=== PATIENT | male | born 1960 | race Caucasian/White ===

== ENCOUNTER 2016-06-15 16:39 | Emergency (ER) | payer OTHER, BC ==
[2016-06-15] MEDS ORDERED: IBUPROFEN 400 MG TABLET PO STA (17:23)
[2016-06-15] MEDS ORDERED: LIDOCAINE PATCH 5% TOP STA (17:23)
[2016-06-15] MEDS ORDERED: LIDOCAINE PATCH 5% TOP ONE (17:25)
[2016-06-15] MEDS ORDERED: IBUPROFEN 400 MG TABLET PO ONE (17:25)
== END 2016-06-15 18:36 | disposition home or self-care (01) ==
DX: M54.5 Low back pain (principal); M25.552 Pain in left hip; R03.0 Elevated blood-pressure reading, without diagnosis of hypertension
CPT/HCPCS: 73502; 99283; A9270

== ENCOUNTER 2017-01-07 07:19 | Outpatient (CLI) | payer OTHER ==
[2017-01-07 13:49] LABS: BASOPHILS % (AUTO) 0.5 %; EOSINOPHILS # (AUTO) 0.1 10^3/uL (0.0-0.7); EOSINOPHILS % (AUTO) 1.8 %; HCT - HEMATOCRIT 38.9 % (42.0-52.0); HGB - HEMOGLOBIN 13.2 g/dL (14.0-18.0); LYMPHOCYTES # (AUTO) 2.5 10^3/uL (1.5-3.5); LYMPHOCYTES % (AUTO) 36.5 %; MEAN CORPUSCULAR HEMOGLOBIN 29.9 pg (27.0-31.0); MEAN CORPUSCULAR HGB CONC 33.9 g/dL (32.0-36.0); MEAN CORPUSCULAR VOLUME 88.4 fL (80.0-94.0); MONOCYTES # (AUTO) 0.5 10^3/uL (0.0-1.0); MONOCYTES % (AUTO) 6.9 %; NEUTROPHILS # (AUTO) 3.7 10^3/uL (1.5-6.6); NEUTROPHILS % (AUTO) 54.3 %; RED CELL DISTRIBUTION WIDTH 13.3 % (12.0-15.0); UNCORRECTED WHITE BLOOD COUNT 6.8 x10^3/uL; WHITE BLOOD COUNT 6.8 x10^3/uL (4.8-10.8)
[2017-01-07 14:09] LABS: ALBUMIN/GLOBULIN RATIO 1.4 (1.0-2.2); BILIRUBIN,TOTAL 0.8 mg/dL (0.2-1.0); BUN - BLOOD UREA NITROGEN 17 mg/dL (6-20); CALCIUM 8.9 mg/dL (8.5-10.3); CARBON DIOXIDE - CO2 25 mmol/L (21-32); CHLORIDE 109 mmol/L (101-111); CHOL/HDL RATIO 3.9 (<5.0); CHOLESTEROL 181 mg/dL; CREATININE 0.8 mg/dL (0.6-1.2); GFR - MDRD 100 (>89); GLUCOSE 95 mg/dL (70-100); HDL CHOLESTEROL 47 mg/dL; LDL/HDL RATIO 2.6 (<3.6); POTASSIUM 3.9 mmol/L (3.5-5.0); SODIUM 140 mmol/L (135-145); TOTAL PROTEIN 6.6 g/dL (6.7-8.2); TRIGLYCERIDES 60 mg/dL; VLDL CHOLESTEROL 12 mg/dL
== END 2017-01-07 07:20 | disposition home or self-care (01) ==
LOC: LAB.WCP 07:19
PROVIDERS: ATTEND Family Medicine
DX: Z00.00 Encounter for general adult medical examination without abnormal findings (principal); Z12.5 Encounter for screening for malignant neoplasm of prostate
CPT/HCPCS: 36415; 80053; 80061; 84153; 85025

== ENCOUNTER 2017-01-07 08:34 | Outpatient (CLI) | payer OTHER ==
[2017-01-07] MEDS ORDERED: IOPAMIDOL-300 100 ML VIAL IVP ONE (08:58)
--- NOTE | 2017-01-07 10:57 | CT Report ---
CT ABDOMEN AND PELVIS WITH AND WITHOUT CONTRAST: 01/07/2017 CLINICAL INDICATION: Hematuria. TECHNIQUE: Axial CT images of the abdomen and pelvis were obtained prior to and following 100 mL Iso joe-300 intravenously, using split bolus technique. No previous CT is available for comparison. In accordance with CT protocol optimization, one or more of the following dose reduction techniques w ere utilized for this exam: automated exposure control, adjustment of mA and/or KV based on patient size, or use of iterative reconstructive technique. FINDINGS: Limited evaluation of the lung bases demonstrates atelectasis. Abdomen: On the unenhanced images, there is no evidence of nephrolithiasis or hydronephrosis. The k idneys demonstrate symmetric uptake and excretion of contrast. No renal parenchymal lesion or collec ting system lesion is seen. The ureters are normal in caliber. The liver, spleen, pancreas, and adr enal glands appear unremarkable, allowing for phase of contrast enhancement. The gallbladder is not dilated. No bowel dilatation, free gas, or free fluid is present. No abdominal adenopathy is seen. Pelvis: The urinary bladder is under-distended. No pelvic adenopathy or free fluid is present. Sig moid diverticulosis is noted, without CT evidence of diverticulitis. Osseous structures demonstrate degenerative changes. IMPRESSION: NO EVIDENT UPPER TRACT ETIOLOGY FOR PATIENT'S HEMATURIA. CONSIDER CYSTOSCOPY. JOB #: [id number] EXT JOB #:[id number]
== END 2017-01-07 08:35 | disposition home or self-care (01) ==
LOC: DI 08:34
PROVIDERS: ATTEND Family Medicine
DX: Z00.00 Encounter for general adult medical examination without abnormal findings (principal); R31.9 Hematuria, unspecified; Z12.5 Encounter for screening for malignant neoplasm of prostate
CPT/HCPCS: 36415; 74178; 80053; 80061; 84153; 85025; Q9967

== ENCOUNTER 2017-08-19 06:11 | Outpatient (CLI) | payer OTHER ==
[2017-08-19] MEDS ORDERED: IOPAMIDOL-300 100 ML VIAL ONE (06:33)
[2017-08-19] MEDS ORDERED: IOPAMIDOL-300 50 ML VIAL ONE (06:33)
[2017-08-19] MEDS ORDERED: IOPAMIDOL-300 100 ML VIAL IVP ONE (07:39)
[2017-08-19] MEDS ORDERED: IOPAMIDOL-300 50 ML VIAL PO ONE (07:39)
--- NOTE | 2017-08-19 15:03 | XRAY Report ---
TWO-VIEW CHEST: 08/19/2017 CLINICAL INDICATION: Cough. COMPARISON: 10/11/2014. FINDINGS: Frontal and lateral views of the chest demonstrate a normal cardiac silhouette. The lungs remain clear. No effusion or pneumothorax is present. IMPRESSION: NORMAL CHEST, UNCHANGED. TD: 08/19/2017 15:02
--- NOTE | 2017-08-19 19:24 | CT Report ---
CT ABDOMEN AND PELVIS WITH CONTRAST: 08/19/2017 INDICATION: Left lower quadrant pain. TECHNIQUE: Axial CT images of the abdomen and pelvis were obtained with 100 mL Isovue 300 well as oral contrast. COMPARISON: 01/07/2017. FINDINGS: Limited evaluation of the lung bases demonstrates minimal atelectasis. ABDOMEN: The liver, spleen, pancreas, kidneys and adrenal glands are unremarkable. The gallbladder is nondilated. No bowel dilatation, free gas, or free fluid is present. No abdominal adenopathy is seen. PELVIS: The pelvic organs appear unremarkable. No pelvic adenopathy or free fluid is present. Osseous structures demonstrate degenerative changes. IMPRESSION: NO EVIDENT ETIOLOGY FOR PATIENT'S LEFT LOWER QUADRANT PAIN. NO EVIDENCE OF DIVERTICULITIS. TD: 08/19/2017 19:23
== END 2017-08-19 06:12 | disposition home or self-care (01) ==
LOC: DI 06:11
PROVIDERS: ATTEND Internal Medicine Gastroenterology
DX: R10.32 Left lower quadrant pain (principal); R05 Cough
CPT/HCPCS: 71046; 74177; Q9967

== ENCOUNTER 2017-09-02 10:47 | Outpatient (CLI) | payer OTHER ==
[2017-09-02 11:04] LABS: BASOPHILS % (AUTO) 0.4 %; EOSINOPHILS # (AUTO) 0.1 10^3/uL (0.0-0.7); HGB - HEMOGLOBIN 14.4 g/dL (14.0-18.0); LYMPHOCYTES # (AUTO) 3.3 10^3/uL (1.5-3.5); LYMPHOCYTES % (AUTO) 49.5 %; MEAN CORPUSCULAR HEMOGLOBIN 30.1 pg (27.0-31.0); MEAN CORPUSCULAR HGB CONC 34.1 g/dL (32.0-36.0); MEAN PLATELET VOLUME 6.5 fL (7.4-11.4); MONOCYTES # (AUTO) 0.5 10^3/uL (0.0-1.0); MONOCYTES % (AUTO) 7.2 %; NEUTROPHILS # (AUTO) 2.7 10^3/uL (1.5-6.6); NEUTROPHILS % (AUTO) 40.9 %; PLT - PLATELET COUNT 240 10^3/uL (130-450); RED BLOOD COUNT 4.81 10^6/uL (4.70-6.10); RED CELL DISTRIBUTION WIDTH 13.4 % (12.0-15.0); WHITE BLOOD COUNT 6.7 x10^3/uL (4.8-10.8)
[2017-09-02 11:19] LABS: ALBUMIN 4.6 g/dL (3.2-5.5); ALBUMIN/GLOBULIN RATIO 1.5 (1.0-2.2); BILIRUBIN,TOTAL 1.1 mg/dL (0.2-1.0); CALCIUM 9.1 mg/dL (8.5-10.3); CREATININE 0.8 mg/dL (0.6-1.2); TOTAL PROTEIN 7.7 g/dL (6.7-8.2)
== END 2017-09-02 10:48 | disposition home or self-care (01) ==
LOC: LAB 10:47
PROVIDERS: ATTEND Internal Medicine Gastroenterology
DX: R10.32 Left lower quadrant pain (principal)
CPT/HCPCS: 36415; 80053; 85025

== ENCOUNTER 2018-10-12 00:45 | Emergency (ER) | payer OTHER, BC ==
[2018-10-12 00:56] VITALS: BP 128/81
--- NOTE | 2018-10-12 02:14 | ED Physician Documentation ---
PD HPI OPHTHO - Stated complaint Stated Complaint: F/O L EYE - Chief complaint Chief Complaint: Heent - History obtained from History obtained from: Patient - History of Present Illness Timing - onset: Yesterday Timing - duration: Hours Timing - details: Abrupt onset Location: Left Quality / character: Other (Irritated) Associated symptoms: FB sensation. No: Redness, Swelling, Tearing, Double vision, Decreased vision Contributing factors: Work related Recently seen: Not recently seen - Additional information Additional information: Patient was grinding metal at work today around 10 AM when he felt something go in his eye. He tried to flush it out and then tonight they tried to remove it although he said they could not actually see it. He has had this happen in the past. He is uncertain when his last tetanus vaccine was. PD PAST MEDICAL HISTORY - Past Medical History Past Medical History: Yes Cardiovascular: None Respiratory: None Neuro: None Endocrine/Autoimmune: None GI: Other : None HEENT: None Psych: Claustrophobia Musculoskeletal: None Derm: Eczema - Past Surgical History Past Surgical History: Yes General: Hiatal hernia repair Ortho: Other HEENT: Tonsil/Adenoidectomy - Present Medications Home Medications: Ambulatory Orders Medication Instructions Recorded Confirmed Cyclobenzaprine [Flexeril] 10 mg PO TID PRN #20 tablet 06/15/16 Ibuprofen [Motrin] 400 mg PO Q6H PRN #30 tablet 06/15/16 Lidocaine Patch 5% [Lidoderm Patch] 1 each TOP DAILY PRN #10 patch 06/15/16 - Allergies Allergies/Adverse Reactions: Allergies Allergy/AdvReac Type Severity Reaction Status Date / Time Penicillins Allergy Unknown Verified 06/15/16 16:43 - Social History Does the pt smoke?: No Smoking Status: Never smoker Does the pt drink ETOH?: No ETOH Use: Beer Does the pt have substance abuse?: No - Immunizations Immunizations are current?: Yes - POLST Patient has POLST: No PD ED PE NORMAL - Vitals Vital signs reviewed: Yes - General General: Alert and oriented X 3, No acute distress, Well developed/nourished - HEENT HEENT: Other (There is a small metallic fragment noted at the 3 o'clock position in the left cornea. There is also what appears to be some rust staining around the 6 o'clock position. There is no conjunctival injection pupils equal round reactive to light. There is a stye on the left lower eyelid.) - Respiratory Respiratory: No respiratory distress - Neuro Neuro: Alert and oriented X 3 - Psych Psych: Normal mood, Normal affect Results - Vitals Vitals: Vital Signs - 24 hr 10/12/18 00:49 Temperature 36.2 C L Heart Rate 61 Respiratory 16 Rate Blood Pressure 128/81 H O2 Saturation 98 Oxygen O2 Source Room air Procedures - FB removal FB location: Other (Corneal L 3 0'clock) FB removal preparation: Local anesthesia-specify (Tetracaine) Removal method: Irrigated/flushed, Other (Ophthalmic bur) FB removal aftercare: Removed successfully PD MEDICAL DECISION MAKING - ED course Complexity details: d/w patient ED course: The metallic foreign body was removed with the ophthalmic bur. Eye was then flushed with a little bit of saline. Still just a little bit of residual rust remaining. Erythromycin ointment was instilled in the eye he is instructed to use this every 3-4 hours and then follow-up with his eye doctor on Tuesday for recheck. Departure - Departure Disposition: 01 Home, Self Care Clinical Impression: Corneal foreign body Qualifiers: Encounter type: initial encounter Laterality: left Qualified Code(s): T15.02XA - Foreign body in cornea, left eye, initial encounter Condition: Good Instructions: ED Foreign Body Cornea Follow-Up: Luis Jefferson MD [Primary Care Provider] - Comments: Use the eye ointment every 3-4 hours until reevaluated. Contact your eye doctor tomorrow for a recheck on Tuesday. Avoid bright lights and flashing lights on TV screens or tablets. May take ibuprofen if needed for pain.
[2018-10-12] MEDS ORDERED: TETRACAINE 0.5% OPHTH DROPS 4 ML LEFTEYE ONE ×2 (02:22→02:54)
[2018-10-12] MEDS ORDERED: BALANCED SALT OPHTHALMIC SOL 120 ML BOTTLE LEFTEYE STA (02:22)
[2018-10-12] MEDS ORDERED: TETRACAINE 0.5% OPHTH DROPS 4 ML ONE (03:03)
[2018-10-12] MEDS ORDERED: ERYTHROMYCIN OPHTH OINT 1 GM TUBE LEFTEYE STA (03:12)
[2018-10-12] MEDS ORDERED: TETANUS/DIPHTHERIA/PERTUSSIS 0.5 ML SYRINGE IM ONE (03:16)
== END 2018-10-12 03:32 | disposition home or self-care (01) ==
LOC: ED 00:45
DX: T15.02XA Foreign body in cornea, left eye, initial encounter (principal); X58.XXXA Exposure to other specified factors, initial encounter; Y93.89 Activity, other specified; Y99.0 Civilian activity done for income or pay; H00.015 Hordeolum externum left lower eyelid; Z23 Encounter for immunization
CPT/HCPCS: 65220; 90471; 90715; 99281; 99283; J3490

== ENCOUNTER 2019-06-27 13:20 | Outpatient (CLI) | payer BC ==
[2019-06-27 13:56] LABS: BASOPHILS % (AUTO) 0.7 %; EOSINOPHILS # (AUTO) 0.1 10^3/uL (0.0-0.7); HGB - HEMOGLOBIN 13.9 g/dL (14.0-18.0); LYMPHOCYTES # (AUTO) 2.6 10^3/uL (1.5-3.5); LYMPHOCYTES % (AUTO) 42.3 %; MEAN CORPUSCULAR HEMOGLOBIN 30.4 pg (27.0-31.0); MEAN CORPUSCULAR HGB CONC 33.3 g/dL (32.0-36.0); MEAN CORPUSCULAR VOLUME 91.5 fL (80.0-94.0); MEAN PLATELET VOLUME 8.7 fL (7.4-11.4); MONOCYTES # (AUTO) 0.5 10^3/uL (0.0-1.0); MONOCYTES % (AUTO) 8.1 %; NEUTROPHILS # (AUTO) 2.9 10^3/uL (1.5-6.6); NEUTROPHILS % (AUTO) 46.7 %; PLT - PLATELET COUNT 246 10^3/uL (130-450); RED BLOOD COUNT 4.57 10^6/uL (4.70-6.10); RED CELL DISTRIBUTION WIDTH 12.7 % (12.0-15.0); WHITE BLOOD COUNT 6.1 x10^3/uL (4.8-10.8)
[2019-06-27 14:11] LABS: ALBUMIN 4.3 g/dL (3.2-5.5); ALBUMIN/GLOBULIN RATIO 1.4 (1.0-2.2); ALKALINE PHOSPHATASE 45 IU/L (42-121); ALT ALANINE AMINOTRANSFERASE 15 IU/L (10-60); AST ASPARTATE AMINOTRANSFERASE 15 IU/L (10-42); BILIRUBIN,TOTAL 0.7 mg/dL (0.2-1.0); BUN - BLOOD UREA NITROGEN 22 mg/dL (6-20); CALCIUM 9.3 mg/dL (8.5-10.3); CARBON DIOXIDE - CO2 27 mmol/L (21-32); CHLORIDE 103 mmol/L (101-111); CHOLESTEROL 220 mg/dL; CREATININE 0.9 mg/dL (0.6-1.2); GFR - MDRD 86 (>89); GLUCOSE 95 mg/dL (70-100); HDL CHOLESTEROL 55 mg/dL; LDL CHOLESTEROL,CALCULATED 148 mg/dL; LDL/HDL RATIO 2.7 (<3.6); SODIUM 140 mmol/L (135-145); TOTAL PROTEIN 7.3 g/dL (6.7-8.2); VLDL CHOLESTEROL 17 mg/dL
== END 2019-06-27 13:21 | disposition home or self-care (01) ==
LOC: RT 13:20
PROVIDERS: ATTEND Physician Assistant
DX: Z00.00 Encounter for general adult medical examination without abnormal findings (principal); R42 Dizziness and giddiness; Z86.2 Personal history of diseases of the blood and blood-forming organs and certain disorders involving the immune mechanism
CPT/HCPCS: 36415; 80053; 80061; 83721; 84443; 85025; 93005

== ENCOUNTER 2019-09-03 12:01 | Outpatient (CLI) | payer BC ==
--- NOTE | 2019-09-04 12:52 | XRAY Report ---
Reason: BACK PAIN,HIP JOINT PX LEFT SIDE Procedure Date: 09/03/2019 Accession Number: [id number] / [id number] Procedure: XR - Hip w/Pelvis 2-3V LT CPT Code: Final Report FULL RESULT: EXAM: LEFT HIP RADIOGRAPHY EXAM DATE: 09/03/2019 12:48 PM. CLINICAL HISTORY: Back pain, hip joint pain, left side. COMPARISON: HIP W/PELVIS 2-3V LT 06/15/2016 5:39 PM. TECHNIQUE: 2 views. FINDINGS: Bones: No acute fracture or bony lesion. Mild degenerative spurring. Joints: Normal alignment. Mild joint space narrowing. Mild joint space narrowing and degenerative changes involving the lower lumbar spine and right hip joint. No dislocation. Soft Tissues: Normal. No soft tissue swelling. IMPRESSION: 1. No acute osseous abnormalities. Normal alignment. 2. Mild degenerative changes of the left hip joint. RADIA
--- NOTE | 2019-09-04 12:52 | XRAY Report ---
Reason: BACK, HIP PAIN LEFT SIDE Procedure Date: 09/03/2019 Accession Number: [id number] / [id number] Procedure: XR - Lumbar Spine w/Flex/Ext CPT Code: Final Report FULL RESULT: EXAM: LUMBOSACRAL SPINE RADIOGRAPHY EXAM DATE: 09/03/2019 12:48 PM. CLINICAL HISTORY: Back, hip pain left side. COMPARISONS: ABDOMEN/PELVIS W/ 08/19/2017 7:29 AM. TECHNIQUE: 6 views. FINDINGS: Alignment: Slight levoscoliosis of the lower lumbar spine. No abnormal motion with flexion or extension. Bones: Five [id number] lumbar vertebral bodies are present. No acute fracture or bony lesion. Mild multifocal degenerative osteophyte formation. Disks: Mild disk space narrowing at T12-L1 and L3-L4 and L4-L5. Facets: Mild to moderate lumbar facet arthropathy largely at L5-S1. Soft Tissues: Minimal vascular calcifications. No bowel obstruction. IMPRESSION: 1. Mild intervertebral disk degenerative changes of the lumbar spine. 2. Lumbar facet arthropathy. 3. No evidence for abnormal motion between flexion and extension. RADIA
== END 2019-09-03 12:02 | disposition home or self-care (01) ==
LOC: DI 12:01
PROVIDERS: ATTEND Physician Assistant
DX: M51.36 Other intervertebral disc degeneration, lumbar region (principal); M47.817 Spondylosis without myelopathy or radiculopathy, lumbosacral region; M47.816 Spondylosis without myelopathy or radiculopathy, lumbar region; M16.12 Unilateral primary osteoarthritis, left hip
CPT/HCPCS: 72114